=== PATIENT | female | born 1985 | race American Indian/Alaskan Native ===

== ENCOUNTER 2016-10-23 10:45 | Emergency (ER) | payer BC, OTHER ==
[2016-10-23 11:29] VITALS: BMI 31.4
[2016-10-23 12:04] LABS: RBC URINE < 1 /hpf (0-3); URINE BACTERIA RARE (<OCC); URINE BILIRUBIN NEGATIVE (NEGATIVE); URINE BLOOD NEGATIVE (NEGATIVE); URINE COLOR Yellow (YELLOW); URINE GLUCOSE (UA) NORMAL (Normal); URINE KETONE 1+ mg/dL (NEGATIVE); URINE LEUKOCYTE ESTERASE TRACE Leu/uL (Negative); URINE PROTEIN NEGATIVE (NEGATIVE); URINE UROBILINOGEN NORMAL mg/dL (0.2-1.0); WBC URINE 4 /hpf (0-5)
== END 2016-10-23 12:30 | disposition home or self-care (01) ==
LOC: C.EROB 10:45
DX: O26.893 Other specified pregnancy related conditions, third trimester (principal); Z3A.31 31 weeks gestation of pregnancy

== ENCOUNTER 2017-12-18 12:22 | Emergency (ER) | payer BC, OTHER ==
[2017-12-18 12:22] VITALS: BMI 33.9
[2017-12-18 12:42] VITALS: BP 123/75; PULSE 89; RESP 18; TEMP 98.9; O2SAT 100
[2017-12-18 13:34] LABS: HCG,QUALITATIVE URINE POSITIVE (NEGATIVE)
[2017-12-18 13:39] LABS: SQUAMOUS EPITHIAL 1 /hpf (0-5); URINE AMORPHOUS SEDIMENT MODERATE /ul (<OCC); URINE BILIRUBIN NEGATIVE (NEGATIVE); URINE BLOOD NEGATIVE (NEGATIVE); URINE CLARITY Hazy (Clear); URINE COLOR Yellow (YELLOW); URINE GLUCOSE (UA) NORMAL (Normal); URINE LEUKOCYTE ESTERASE TRACE Leu/uL (Negative); URINE PROTEIN NEGATIVE (NEGATIVE)
--- NOTE | 2017-12-18 13:47 | C.PDOC ---
History Of Present Illness 32 y/o female with PMHx of depression presents to the ED complaining of worsening depression. States she had (+) home test. Patient feels that makes her depression worse. She admits she has been lost to follow-up with psychiatry. Denies any SI, HI, nausea, vomiting, abdominal pain, or vaginal bleeding. Time Seen by Provider: 12/18/17 13:01 Chief Complaint (Nursing): Psychiatric Evaluation History Per: Patient History/Exam Limitations: no limitations Onset/Duration Of Symptoms: Days Current Symptoms Are (Timing): Still Present Suicide/Self Injury Attempted (Context): None Modifying Factor(s): None Involuntary Hold By: None Past Medical History Reviewed: Historical Data, Nursing Documentation, Vital Signs Vital Signs: Last Vital Signs Temp 98.9 F 12/18/17 12:37 Pulse 89 12/18/17 12:37 Resp 18 12/18/17 12:37 BP 123/75 12/18/17 12:37 Pulse Ox 100 12/18/17 13:47 - Medical History PMH: Asthma, Depression - [facility] Procedures DELIVERY OF PRODUCTS OF CONCEPTION, EXTERNAL APPROACH (12/06/16) MONITORING OF POC, CARDIAC RATE, PROPERTY FIELD INSPECTOR APPROACH (12/06/16) Family History: States: Unknown Family Hx - Social History Hx Tobacco Use: No Hx Alcohol Use: No Hx Substance Use: No - Immunization History Hx Tetanus Toxoid Vaccination: No Hx Influenza Vaccination: No Hx Pneumococcal Vaccination: No Review Of Systems Constitutional: Negative for: Fever Gastrointestinal: Negative for: Nausea, Vomiting, Abdominal Pain Genitourinary: Negative for: Vaginal Discharge, Vaginal Bleeding Neurological: Negative for: Dizziness Psych: Positive for: Depression. Negative for: Suicidal ideation Physical Exam - Physical Exam Appears: Non-toxic, No Acute Distress Skin: Normal Color, Warm, Dry Head: Atraumatic, Normacephalic Eye(s): bilateral: Normal Inspection, PERRL, EOMI Oral Mucosa: Moist Neck: Normal ROM Chest: Symmetrical Cardiovascular: Rhythm Regular Respiratory: No Rales, No Rhonchi, No Wheezing, Other (Clear to auscultation) Gastrointestinal/Abdominal: Soft, No Tenderness, No Distention, No Guarding Back: Normal Inspection Extremity: Bilateral: Atraumatic, Normal Color And Temperature, Normal ROM Neurological/Psych: Oriented x3, Normal Speech, Other (Flat affect) ED Course And Treatment - Laboratory Results Lab Interpretation: Normal (ua wnl) Urine POC: Positive O2 Sat by Pulse Oximetry: 100 (RA) Pulse Ox Interpretation: Normal Medical Decision Making Medical Decision Making: Plan: * UA * urine preg Progress: no acute s/s Crisis d/w pt and offered opt resources no SI/HI UA wnl preg +. No indication for further preg w/u at this time. Disposition Doctor Will See Patient In The: Office Counseled Patient/Family Regarding: Studies Performed, Diagnosis - Disposition Referrals: [facility] [Outside] [facility] [Outside] [facility] [Outside] [facility] [Outside] Disposition: HOME/ ROUTINE Disposition Time: 13:46 Condition: GOOD Additional Instructions: follow-up with outpatient OBGYN Clinic for further OBGYN care Take your daily vitamin Confirmed test positive Urinalysis normal. Outpatient psych follow-up as discussed w our Crisis Workers Instructions: Depression, - The First Month Forms: [facility] ([facility]), Work Excuse - Clinical Impression Clinical Impression: Depression, - Scribe Statement The provider has reviewed the documentation as recorded by the Scribe (Anamika Alfaro) Provider Attestation: All medical record entries made by the Scribe were at my direction and personally dictated by me. I have reviewed the chart and agree that the record accurately reflects my personal performance of the history, physical exam, medical decision making, and the department course for this patient. I have also personally directed, reviewed, and agree with the discharge instructions and disposition.
== END 2017-12-18 14:00 | disposition home or self-care (01) ==
LOC: C.ER 12:22
DX: O99.341 Other mental disorders complicating pregnancy, first trimester (principal); F32.9 Major depressive disorder, single episode, unspecified; Z3A.00 Weeks of gestation of pregnancy not specified